=== PATIENT | male | born 1970 | race Caucasian/White ===

== ENCOUNTER → 2021-03-06 | Outpatient (CLI) | payer MEDICARE | LOC: KOH-I 10:57 | DX: G37.9 Demyelinating disease of central nervous system, unspecified (principal) | CPT/HCPCS: 70551 ==

== ENCOUNTER → 2022-01-06 | Outpatient (CLI) | payer MEDICARE | LOC: KOH-I 08:30 | DX: M48.02 Spinal stenosis, cervical region (principal); M50.31 Other cervical disc degeneration, high cervical region | CPT/HCPCS: 72125 ==